=== PATIENT | female | born 1945 | race Caucasian/White ===

== ENCOUNTER 2018-11-11 18:58 | Inpatient (IN) | payer MEDICARE, MEDICAID ==
--- NOTE | 2018-11-11 19:46 | ED Physician Chart ---
ED Chief Complaint/HPI - Patient Information Date Seen:: 11/11/18 Time Seen:: 19:40 Chief Complaint:: AGITATION SUSHILA PSYCH EVAL History of Present Illness:: 73 YR OLD FEMALE WITH PSYCH PROBLEMS HERE FOR GEROPSYCH EVALUATION Allergies:: Allergies Allergy/AdvReac Type Severity Reaction Status Date / Time No Known Allergies Allergy Verified 11/11/18 19:34 ED Review of Systems - Review of Systems General/Constitutional: No fever, No chills, No weight loss, No weakness, No diaphoresis, No edema, No loss of appetite Skin: No skin lesions, No rash, No bruising Head: No headache, No light-headedness Eyes: No loss of vision, No pain, No diplopia ENT: No earache, No nasal drainage, No sore throat, No tinnitus Neck: No neck pain, No swelling, No thyromegaly, No stiffness, No mass noted Cardio Vascular: No chest pain, No palpitations, No PND, No orthopnea, No edema Pulmonary: No SOB, No cough, No sputum, No wheezing GI: No nausea, No vomiting, No diarrhea, No pain, No melena, No hematochezia, No constipation, No hematemesis G/U: No dysuria, No frequency, No hematuria Musculoskeletal: No bone or joint pain, No back pain, No muscle pain Endocrine: No polyuria, No polydipsia Psychiatric: No prior psych history, No depression, No anxiety, No suicidal ideation Hematopoietic: No bruising, No lymphadenopathy Allergic/Immuno: No urticaria, No angioedema Neurological: No syncope, No focal symptoms, No weakness, No paresthesia, No headache, No seizure, No dizziness, No confusion, No vertigo ED Past Medical History - Past Medical History Past Medical History: Other (AMS DEMENTIA WITH BEHAVIORAL DISTURBANCE CHRONIC HEPATITIS ASTHMA COPD ENCEPALOPATHYHTN MUSCLE WEAKNESS) ED Physical Exam - Physical Examination General/Constitutional: Awake, Well-developed, well-nourished, Alert, No distress, GCS 15, Non-toxic appearing, Ambulatory Head: Atraumatic Eyes: Lids, conjuctiva normal, PERRL, EOMI Skin: Nl inspection, No rash, No skin lesions, No ecchymosis, Well hydrated, No lymphadenopathy ENMT: External ears, nose nl, Nasal exam nl, Lips, teeth, gums nl Neck: Nontender, Full ROM w/o pain, No JVD, No nuchal rigidity, No bruit, No mass, No stridor Respiratory: Nl effort/Exclusion, Clear to Auscultation, No Wheeze/Rhonchi/Rales Cardio Vascular: RRR, No murmur, gallop, rubs, NL S1 S2 GI: No tenderness/rebounding/guarding, No organomegaly, No hernia, Normal BS's, Nondistended, No mass/bruits, No McBurney tenderness : No CVA tenderness Extremities: No tenderness or effusion, Full ROM, normal strength in all extremities, No edema, Normal digits & nails Neuro/Psych: Alert/oriented, DTR's symmetric, Normal sensory exam, Normal motor strength, Judgement/insight normal, Mood normal, Normal gait, No focal deficits Misc: Normal back, No paraspinal tenderness ED Assessment - Assessment General Assessment: AGITAION DEMENTIA GEROPSYCH EVALUATION ED Septic Shock - . Is Septic Shock (SBP<90, OR Lactate>4 mmol\L) present?: No ED Reassessment (Disposition) - Reassessment Reassessment:: AGITAION PSYCHOSIS - Diagnosis Diagnosis:: AGITAION GEROPSYCH EVALUATION - Patient Disposition Discharge/Transfer:: Acute Care w/in this hosp Admitted to:: Med/Surg Condition at Disposition:: Stable
[2018-11-11 20:02] LABS: URINE SOURCE CLEAN C
[2018-11-11 20:07] LABS: % BASOPHILS 1.1 % (0.0-2.0); % EOSINOPHILS 5.9 % (0.0-5.0); % LYMPHOCYTES 27.4 % (20.0-50.0); % MONOCYTES 11.3 % (2.0-10.0); % NEUTROPHILS 54.3 % (40.0-80.0); BASOPHILE ABSOLUTE 0.1 Th/cumm (0-0.2); EOSINOPHILE ABSOLUTE 0.4 Th/cmm (0.1-0.4); HEMATOCRIT 41.5 % (41.0-60); HEMOGLOBIN 13.8 gm/dL (12-16); LYMPHOCYTE ABSOLUTE 1.8 Th/cmm (1.5-3.0); MEAN CELL VOLUME 87.2 fl (81-100); MEAN CORPUSCULAR HGB CONC 33.3 pg (28.0-36.0); MEAN PLATELET VOLUME 6.9 fl; MONOCYTE ABSOLUTE 0.8 Th/cmm (0.3-1.0); NEUTROPHILE ABSOLUTE 3.6 Th/cmm (1.8-8.0); PLATELET COUNT 483 Th/cmm (150-400); RED BLOOD COUNT 4.76 Mil/cmm (3.80-5.20); RED CELL DISTRIBUTION WIDTH 17.2 % (11.5-20.0); WHITE BLOOD COUNT 6.7 Th/cmm (4.8-10.8)
[2018-11-11 20:08] LABS: URINE BILIRUBIN NEGATIVE (NEGATIVE); URINE BLOOD NEGATIVE (NEGATIVE); URINE GLUCOSE (UA) NEGATIVE (NEGATIVE); URINE KETONE NEGATIVE (NEGATIVE); URINE LEUKOCYTE ESTERASE NEGATIVE (NEGATIVE); URINE NITRATE NEGATIVE (NEGATIVE); URINE PROTEIN NEGATIVE (NEGATIVE); URINE UROBILINOGEN 0.2 E.U./dL (0.2 - 1.0)
[2018-11-11 20:16] LABS: ALB/GLOB RATIO 1.6 (1.0-1.8); ALBUMIN 4.2 gm/dL (3.7-5.3); ALKALINE PHOSPHATASE 89 U/L (34-104); ANION GAP 12.6 (7.0-16.0); BILIRUBIN,TOTAL 0.2 mg/dL (0.3-1.0); BUN - UREA NITROGEN 33 mg/dL (7-25); CALCIUM SERUM 9.8 mg/dL (8.6-10.3); CARBON DIOXIDE 24.5 mEq/L (21.0-31.0); CHLORIDE 108 mEq/L (98-107); CREATININE - SERUM 0.7 mg/dL (0.6-1.2); GLUCOSE 101 mg/dL (70-105); POTASSIUM SERUM 4.1 mEq/L (3.5-5.1); SGOT 12 U/L (13-39); SGPT/ALT 19 U/L (7-52); SODIUM SERUM 141 mEq/L (136-145); TOTAL PROTEIN,SERUM 6.9 gm/dL (6.0-8.3)
[2018-11-11 20:23] LABS: URINE CLARITY CLEAR (CLEAR); URINE COLOR YELLOW
[2018-11-11 20:26] LABS: URINE BACTERIA FEW /hpf (NONE SEEN); URINE EPITHELIAL CELLS OCCASIONAL /lpf (FEW); URINE MICROSCOPIC INDICATED? YES; URINE RBC NONE SEEN /hpf (0-5); URINE WBC 0-2 /hpf (0-5)
[2018-11-11 22:28] VITALS: BP 123/63
[2018-11-11] MEDS ORDERED: Magnesium Hydroxide (MOM) 30 mL UDC PO PRN (22:33)
[2018-11-11] MEDS ORDERED: Fleet Enema 135 mL RC PRN (22:33)
[2018-11-11 23:09] LABS: CHOLESTEROL 164 mg/dL (<200); HDL -HIGH DENSITY LIPOPROTEIN 50 mg/dL (23-92); TRIGLYCERIDES 123 mg/dL (<150)
[2018-11-12] MEDS ORDERED: Non-Formulary Item 1 EA (Cranberry Fruit Extract [Cranberry] 425 MG) PO SCH (09:00)
[2018-11-12] MEDS ORDERED: Non-Formulary Item 1 EA (Cran/Vitc/Mannose/Fos/Bromeln [Uti-Stat Liquid] 30 ML) PO SCH (09:00)
[2018-11-12] MEDS: Escitalopram Oxalate 5 mg Tab PO SCH (11:32)
--- NOTE | 2018-11-12 17:28 | History and Physical ---
History of Present Illness - HPI Chief Complaint: AGITATION HPI: THIS IS A 73 YEAR OLD WHO IS ADMITTED TO [facility] DUE TO AGITATION AT THE SNF. Vital Signs: Last Vital Signs Temp 98.6 F 11/12/18 14:00 Pulse 82 11/12/18 14:00 Resp 19 11/12/18 14:00 BP 120/77 11/12/18 14:00 Pulse Ox 99 11/12/18 14:00 Past Medical History Other History: DEMENTIA CHRONIC HEPATITIS ASTHMA COPD MUSCLE WEAKNESS Family Medical History - Family Member Mother History Unknown: Yes Ethnicity: Unknown Living Status: Unknown Hx Family Cancer: (unknown) Hx Family Coronary Artery Disease: (unknown) Hx Family Congestive Heart Failure: (unknown) Hx Family Hypertension: (unknown) Hx Family Stroke: (unknown) Hx Family Diabetes: (unknown) Hx Family Seizures: (unknown) Hx Family Dementia: (unknown) Hx Family AIDS: (unknown) Hx Family COPD: (unknown) Hx Family Hepatitis: (unknown) Hx Family Psychiatric Problems: (unknown) Hx Family Tuberculosis: (unknown) Social History Smoke: No Alcohol: None Drugs: None Lives: Half-Way - Medications Home Medications: Home Medication Medication Instructions Recorded Type Acetaminophen [Tylenol] 650 mg PO Q4HR PRN 11/11/18 History Aspirin EC [Ecotrin] 81 mg PO DAILY 11/11/18 History Bisacodyl [Dulcolax 10 Mg Supp] 10 mg RC DAILY PRN 11/11/18 History Cholecalciferol (Vitamin D3) 1,000 unit PO DAILY 11/11/18 History [Vitamin D3] Cran/Vitc/Mannose/Fos/Bromeln 30 ml PO DAILY 11/11/18 History [Uti-Stat 887 ml] Cranberry Fruit Extract [Cranberry] 425 mg PO DAILY 11/11/18 History Docusate Sodium [Colace] 100 mg PO DAILY 11/11/18 History Fleet Enema 135 ml RC Q48HR PRN 11/11/18 History Magnesium Hydroxide [Milk of 30 ml PO HS PRN 11/11/18 History Magnesia] Melatonin/Pyridoxine [Melatonin 1 tab PO HS 11/11/18 History Extra Strength 5 mg-1 mg] Memantine HCl [Namenda] 10 mg PO BID 11/11/18 History Memantine [Namenda] 10 mg PO DAILY 11/11/18 History - Allergies Allergies/Adverse Reactions: Allergies Allergy/AdvReac Type Severity Reaction Status Date / Time No Known Allergies Allergy Verified 11/11/18 19:34 Review of Systems - Review of Systems Constitutional: Report: No Significant Eyes: Report: No Significant Respiratory: Report: No Significant Cardiovascular: Report: No Significant Neurological: Report: No Significant Physical Exam - Physical Exam HEENT: Report: Ears Nose Throat within normal limits Neck: Report: Within normal limits Cardiovascular Systems: Report: +s1/s2 noted, Regular, Rate and Rhythm Respiratory: Report: Breath Sounds are within normal limits Abdomen: Report: Non-tender to palpation Skin: Report: Warm, Dry - Lab Results All Lab Results last 24 hours: Laboratory Results - last 24 hr 11/11/18 11/11/18 11/11/18 19:30 19:54 19:54 WBC 6.7 RBC 4.76 Hgb 13.8 Hct 41.5 MCV 87.2 MCH 29.0 MCHC Differential 33.3 RDW 17.2 Plt Count 483 H MPV 6.9 Neutrophils % 54.3 Lymphocytes % 27.4 Monocytes % 11.3 H Eosinophils % 5.9 H Basophils % 1.1 Sodium 141 Potassium 4.1 Chloride 108 H Carbon Dioxide 24.5 Anion Gap 12.6 BUN 33 H Creatinine 0.7 Est GFR ( Amer) TNP Est GFR (Non-Af Amer) TNP BUN/Creatinine Ratio 47.1 Glucose 101 Calcium 9.8 Total Bilirubin 0.2 L AST 12 L ALT 19 Alkaline Phosphatase 89 Total Protein 6.9 Albumin 4.2 Globulin 2.7 Albumin/Globulin Ratio 1.6 Triglycerides Cholesterol LDL Cholesterol Direct HDL Cholesterol Urine Source CLEAN C Urine Color YELLOW Urine Clarity CLEAR Urine pH 6.0 Ur Specific [place] 1.025 Urine Protein NEGATIVE Urine Glucose (UA) NEGATIVE Urine Ketones NEGATIVE Urine Blood NEGATIVE Urine Nitrate NEGATIVE Urine Bilirubin NEGATIVE Urine Urobilinogen 0.2 Ur Leukocyte Esterase NEGATIVE Urine RBC NONE SEEN Urine WBC 0-2 Ur Epithelial Cells OCCASIONAL Urine Bacteria FEW 11/11/18 19:54 WBC RBC Hgb Hct MCV MCH MCHC Differential RDW Plt Count MPV Neutrophils % Lymphocytes % Monocytes % Eosinophils % Basophils % Sodium Potassium Chloride Carbon Dioxide Anion Gap BUN Creatinine Est GFR ( Amer) Est GFR (Non-Af Amer) BUN/Creatinine Ratio Glucose Calcium Total Bilirubin AST ALT Alkaline Phosphatase Total Protein Albumin Globulin Albumin/Globulin Ratio Triglycerides 123 Cholesterol 164 LDL Cholesterol Direct 108 HDL Cholesterol 50 Urine Source Urine Color Urine Clarity Urine pH Ur Specific [place] Urine Protein Urine Glucose (UA) Urine Ketones Urine Blood Urine Nitrate Urine Bilirubin Urine Urobilinogen Ur Leukocyte Esterase Urine RBC Urine WBC Ur Epithelial Cells Urine Bacteria - Assessment Assessment: DEMENTIA CHRONIC HEPATITIS ASTHMA COPD MUSCLE WEAKNESS - Plan Plan: FALL PRECAUTIONS CONTINUE CURRENT [place]
[2018-11-12] MEDS ORDERED: PYRIDOXINE PO SCH (21:00)
[2018-11-12] MEDS ORDERED: MELATONIN PO SCH (21:00)
[2018-11-13] MEDS: Escitalopram Oxalate 5 mg Tab PO SCH (09:01)
--- NOTE | 2018-11-13 12:30 | Psychiatric Evaluation ---
DATE OF SERVICE: 11/12/2018 PSYCHIATRIC INITIAL EVALUATION AND MENTAL STATUS EXAM PATIENT'S AGE: 73-year-old. SEX: Female. PHYSICIAN: Dr. Bañuelos. CHIEF COMPLAINT: Agitation and refusing medications. HISTORY OF PRESENT ILLNESS: The patient is a 73-year-old female who is admitted to the hospital from [facility] because the patient has been increasingly agitated and depressed and also has not been able to follow staff directions. The patient also has been in angry and in irritable mood. PAST PSYCHIATRIC HISTORY: The patient has history of dementia and also history of psychosis. PAST MEDICAL HISTORY: The patient had no known major medical problems. SOCIAL HISTORY: The patient lives in [facility]. No known alcohol or drug use. ALLERGIES: No known allergies. MENTAL STATUS EXAMINATION: The patient appears her stated age. Anxious. Flat affect. In a depressed mood. Easily agitated. The patient also is trying to be cooperative, but he is still confused and agitated. Otherwise, the patient is alert and oriented to time, place, person and situation. Intact recent and remote memories but impaired immediate memories. Poor insight and judgment. ASSESSMENT: PRIMARY DIAGNOSIS: Unspecified psychosis. TREATMENT PLAN: We will monitor the patient's behavior and condition closely. Also, we will start psychotherapy and will start also behavioral modifications and work on ineffective coping. JOB# [id number]
--- NOTE | 2018-11-13 16:13 | Internal Medicine Prog Note ---
Internal Medicine Subjective - Subjective Patient seen and examined:: chart reviewed Patient is:: awake, agitated, confused Per staff patient has:: agitated, confused Internal Medicine Objective - Results Result Diagrams: 11/11/18 19:54 11/11/18 19:54 Recent Labs: Laboratory Last Values WBC 6.7 Th/cmm (4.8-10.8) 11/11/18 19:54 RBC 4.76 Mil/cmm (3.80-5.20) 11/11/18 19:54 Hgb 13.8 gm/dL (12-16) 11/11/18 19:54 Hct 41.5 % (41.0-60) 11/11/18 19:54 MCV 87.2 fl (81-100) 11/11/18 19:54 MCH 29.0 pg (27.0-31.0) 11/11/18 19:54 MCHC Differential 33.3 pg (28.0-36.0) 11/11/18 19:54 RDW 17.2 % (11.5-20.0) 11/11/18 19:54 Plt Count 483 Th/cmm (150-400) H 11/11/18 19:54 MPV 6.9 fl 11/11/18 19:54 Neutrophils % 54.3 % (40.0-80.0) 11/11/18 19:54 Lymphocytes % 27.4 % (20.0-50.0) 11/11/18 19:54 Monocytes % 11.3 % (2.0-10.0) H 11/11/18 19:54 Eosinophils % 5.9 % (0.0-5.0) H 11/11/18 19:54 Basophils % 1.1 % (0.0-2.0) 11/11/18 19:54 Sodium 141 mEq/L (136-145) 11/11/18 19:54 Potassium 4.1 mEq/L (3.5-5.1) 11/11/18 19:54 Chloride 108 mEq/L (98-107) H 11/11/18 19:54 Carbon Dioxide 24.5 mEq/L (21.0-31.0) 11/11/18 19:54 Anion Gap 12.6 (7.0-16.0) 11/11/18 19:54 BUN 33 mg/dL (7-25) H 11/11/18 19:54 Creatinine 0.7 mg/dL (0.6-1.2) 11/11/18 19:54 Est GFR ( Amer) TNP 11/11/18 19:54 Est GFR (Non-Af Amer) TNP 11/11/18 19:54 BUN/Creatinine Ratio 47.1 11/11/18 19:54 Glucose 101 mg/dL (70-105) 11/11/18 19:54 Calcium 9.8 mg/dL (8.6-10.3) 11/11/18 19:54 Total Bilirubin 0.2 mg/dL (0.3-1.0) L 11/11/18 19:54 AST 12 U/L (13-39) L 11/11/18 19:54 ALT 19 U/L (7-52) 11/11/18 19:54 Alkaline Phosphatase 89 U/L (34-104) 11/11/18 19:54 Total Protein 6.9 gm/dL (6.0-8.3) 11/11/18 19:54 Albumin 4.2 gm/dL (3.7-5.3) 11/11/18 19:54 Globulin 2.7 gm/dL 11/11/18 19:54 Albumin/Globulin Ratio 1.6 (1.0-1.8) 11/11/18 19:54 Triglycerides 123 mg/dL (<150) 11/11/18 19:54 Cholesterol 164 mg/dL (<200) 11/11/18 19:54 LDL Cholesterol Direct 108 mg/dL (75-193) 11/11/18 19:54 HDL Cholesterol 50 mg/dL (23-92) 11/11/18 19:54 Urine Source CLEAN C 11/11/18 19:30 Urine Color YELLOW 11/11/18 19:30 Urine Clarity CLEAR (CLEAR) 11/11/18 19:30 Urine pH 6.0 (4.6 - 8.0) 11/11/18 19:30 Ur Specific [place] 1.025 (1.005-1.030) 11/11/18 19:30 Urine Protein NEGATIVE mg/dL (NEGATIVE) 11/11/18 19:30 Urine Glucose (UA) NEGATIVE mg/dL (NEGATIVE) 11/11/18 19:30 Urine Ketones NEGATIVE mg/dL (NEGATIVE) 11/11/18 19:30 Urine Blood NEGATIVE (NEGATIVE) 11/11/18 19:30 Urine Nitrate NEGATIVE (NEGATIVE) 11/11/18 19:30 Urine Bilirubin NEGATIVE (NEGATIVE) 11/11/18 19:30 Urine Urobilinogen 0.2 E.U./dL (0.2 - 1.0) 11/11/18 19:30 Ur Leukocyte Esterase NEGATIVE (NEGATIVE) 11/11/18 19:30 Urine RBC NONE SEEN /hpf (0-5) 11/11/18 19:30 Urine WBC 0-2 /hpf (0-5) 11/11/18 19:30 Ur Epithelial Cells OCCASIONAL /lpf (FEW) 11/11/18 19:30 Urine Bacteria FEW /hpf (NONE SEEN) 11/11/18 19:30 - Physical Exam Vitals and I&O: Vital Signs Temp 97.4 F 11/13/18 14:00 Pulse 72 11/13/18 14:00 Resp 20 11/13/18 14:00 BP 106/65 11/13/18 14:00 Pulse Ox 96 11/13/18 14:00 Intake & Output 11/12/18 11/13/18 11/13/18 18:59 06:59 18:59 Intake Total 1250 360 Balance 1250 360 Intake: Oral 1250 360 Other: # Voids 2 Active Medications: Current Medications Acetaminophen (Tylenol) 650 mg PO Q4HR PRN PRN Reason: TEMP>101.F AND MILD PAIN Stop: 01/10/19 22:32 Aspirin (Ecotrin) 81 mg PO DAILY [facility] Stop: 01/11/19 08:59 Last Admin: 11/13/18 09:02 Dose: 81 mg Bisacodyl (Dulcolax 10 Mg Supp) 10 mg RC DAILY PRN PRN Reason: Constipation Stop: 01/10/19 22:32 Cholecalciferol (Vitamin D3) 1,000 iu PO DAILY [facility] Stop: 01/11/19 08:59 Last Admin: 11/13/18 09:01 Dose: 1,000 iu Docusate Sodium (Colace) 100 mg PO DAILY [facility] Stop: 01/11/19 08:59 Last Admin: 11/13/18 09:01 Dose: 100 mg Escitalopram Oxalate (Lexapro) 5 mg PO DAILY [facility]; Protocol Stop: 01/11/19 08:59 Last Admin: 11/13/18 09:01 Dose: 5 mg Lorazepam (Ativan) 0.5 mg PO Q4H PRN; Protocol PRN Reason: Anxiety Stop: 01/10/19 22:27 Magnesium Hydroxide (Milk Of Magnesia) 30 ml PO HS PRN PRN Reason: Constipation Stop: 01/10/19 22:32 Memantine (Namenda) 10 mg PO BID [facility] Stop: 01/11/19 08:59 Last Admin: 11/13/18 09:01 Dose: 10 mg Sodium Phosphate (Fleet Enema) 135 ml RC Q48HR PRN PRN Reason: Constipation Stop: 01/10/19 22:32 Zolpidem Tartrate (Ambien) 5 mg PO HS PRN PRN Reason: Insomnia Stop: 01/10/19 22:27 Last Admin: 11/12/18 22:21 Dose: 5 mg General: alert, NAD HEENT: PERRLA, EOMI Neck: Supple Lungs: CTAB Cardiovascular: RRR, Normal S1, Normal S2 Abdomen: soft, non-tender Extremities: clear Neurological: alert (pt. depressed) Internal Medicine Assmt/Plan - Assessment Assessment: psychosis dementia chronic hepatitis asthma copd muscle weakness - Plan Plan: as per psych will monitor pt. continue behavioral therapy
--- NOTE | 2018-11-13 21:43 | Progress Notes ---
DATE: 11/13/2018 SUBJECTIVE: Chart reviewed and the patient interviewed. Also discussed the patient's condition with the staff and reviewed records and labs. The patient is still withdrawn. The patient also is still depressed and she is still interacting minimally with others. The patient also is guarded, forgetful, and selectively mute. Otherwise, the patient is having no behavioral problems. ASSESSMENT: The patient is still depressed. TREATMENT PLAN: Continue to monitor the patient's behavior closely. Also, yesterday the patient refused to take Lexapro, but did take Namenda. Discussed with the patient why she refused to take Lexapro, but she has no explanation. The patient said that she will take it today. At the same time, we will continue monitoring behavior and continue to follow up. JOB# [id number]
[2018-11-14] MEDS: Escitalopram Oxalate 5 mg Tab PO SCH (08:29)
--- NOTE | 2018-11-14 19:17 | Internal Medicine Prog Note ---
Internal Medicine Subjective - Subjective Service Date: 11/14/18 Patient is:: awake, agitated, confused Per staff patient has:: agitated, confused Internal Medicine Objective - Results Result Diagrams: 11/11/18 19:54 11/11/18 19:54 Recent Labs: Laboratory Last Values WBC 6.7 Th/cmm (4.8-10.8) 11/11/18 19:54 RBC 4.76 Mil/cmm (3.80-5.20) 11/11/18 19:54 Hgb 13.8 gm/dL (12-16) 11/11/18 19:54 Hct 41.5 % (41.0-60) 11/11/18 19:54 MCV 87.2 fl (81-100) 11/11/18 19:54 MCH 29.0 pg (27.0-31.0) 11/11/18 19:54 MCHC Differential 33.3 pg (28.0-36.0) 11/11/18 19:54 RDW 17.2 % (11.5-20.0) 11/11/18 19:54 Plt Count 483 Th/cmm (150-400) H 11/11/18 19:54 MPV 6.9 fl 11/11/18 19:54 Neutrophils % 54.3 % (40.0-80.0) 11/11/18 19:54 Lymphocytes % 27.4 % (20.0-50.0) 11/11/18 19:54 Monocytes % 11.3 % (2.0-10.0) H 11/11/18 19:54 Eosinophils % 5.9 % (0.0-5.0) H 11/11/18 19:54 Basophils % 1.1 % (0.0-2.0) 11/11/18 19:54 Sodium 141 mEq/L (136-145) 11/11/18 19:54 Potassium 4.1 mEq/L (3.5-5.1) 11/11/18 19:54 Chloride 108 mEq/L (98-107) H 11/11/18 19:54 Carbon Dioxide 24.5 mEq/L (21.0-31.0) 11/11/18 19:54 Anion Gap 12.6 (7.0-16.0) 11/11/18 19:54 BUN 33 mg/dL (7-25) H 11/11/18 19:54 Creatinine 0.7 mg/dL (0.6-1.2) 11/11/18 19:54 Est GFR ( Amer) TNP 11/11/18 19:54 Est GFR (Non-Af Amer) TNP 11/11/18 19:54 BUN/Creatinine Ratio 47.1 11/11/18 19:54 Glucose 101 mg/dL (70-105) 11/11/18 19:54 POC Glucose 85 MG/DL (70 - 105) 11/14/18 06:05 Calcium 9.8 mg/dL (8.6-10.3) 11/11/18 19:54 Total Bilirubin 0.2 mg/dL (0.3-1.0) L 11/11/18 19:54 AST 12 U/L (13-39) L 11/11/18 19:54 ALT 19 U/L (7-52) 11/11/18 19:54 Alkaline Phosphatase 89 U/L (34-104) 11/11/18 19:54 Total Protein 6.9 gm/dL (6.0-8.3) 11/11/18 19:54 Albumin 4.2 gm/dL (3.7-5.3) 11/11/18 19:54 Globulin 2.7 gm/dL 11/11/18 19:54 Albumin/Globulin Ratio 1.6 (1.0-1.8) 11/11/18 19:54 Triglycerides 123 mg/dL (<150) 11/11/18 19:54 Cholesterol 164 mg/dL (<200) 11/11/18 19:54 LDL Cholesterol Direct 108 mg/dL (75-193) 11/11/18 19:54 HDL Cholesterol 50 mg/dL (23-92) 11/11/18 19:54 Urine Source CLEAN C 11/11/18 19:30 Urine Color YELLOW 11/11/18 19:30 Urine Clarity CLEAR (CLEAR) 11/11/18 19:30 Urine pH 6.0 (4.6 - 8.0) 11/11/18 19:30 Ur Specific [place] 1.025 (1.005-1.030) 11/11/18 19:30 Urine Protein NEGATIVE mg/dL (NEGATIVE) 11/11/18 19:30 Urine Glucose (UA) NEGATIVE mg/dL (NEGATIVE) 11/11/18 19:30 Urine Ketones NEGATIVE mg/dL (NEGATIVE) 11/11/18 19:30 Urine Blood NEGATIVE (NEGATIVE) 11/11/18 19:30 Urine Nitrate NEGATIVE (NEGATIVE) 11/11/18 19:30 Urine Bilirubin NEGATIVE (NEGATIVE) 11/11/18 19:30 Urine Urobilinogen 0.2 E.U./dL (0.2 - 1.0) 11/11/18 19:30 Ur Leukocyte Esterase NEGATIVE (NEGATIVE) 11/11/18 19:30 Urine RBC NONE SEEN /hpf (0-5) 11/11/18 19:30 Urine WBC 0-2 /hpf (0-5) 11/11/18 19:30 Ur Epithelial Cells OCCASIONAL /lpf (FEW) 11/11/18 19:30 Urine Bacteria FEW /hpf (NONE SEEN) 11/11/18 19:30 - Physical Exam Vitals and I&O: Vital Signs Temp 97.6 F 11/14/18 14:00 Pulse 95 11/14/18 14:00 Resp 20 11/14/18 14:00 BP 121/74 11/14/18 14:00 Pulse Ox 96 11/14/18 14:00 Intake & Output 11/14/18 11/14/18 11/15/18 06:59 18:59 06:59 Intake Total 120 1000 Balance 120 1000 Intake: Oral 120 1000 Other: # Voids 3 3 # Bowel Movements 1 Active Medications: Current Medications Acetaminophen (Tylenol) 650 mg PO Q4HR PRN PRN Reason: TEMP>101.F AND MILD PAIN Stop: 01/10/19 22:32 Aspirin (Ecotrin) 81 mg PO DAILY [facility] Stop: 01/11/19 08:59 Last Admin: 11/14/18 08:29 Dose: 81 mg Bisacodyl (Dulcolax 10 Mg Supp) 10 mg RC DAILY PRN PRN Reason: Constipation Stop: 01/10/19 22:32 Cholecalciferol (Vitamin D3) 1,000 iu PO DAILY [facility] Stop: 01/11/19 08:59 Last Admin: 11/14/18 08:30 Dose: 1,000 iu Docusate Sodium (Colace) 100 mg PO DAILY [facility] Stop: 01/11/19 08:59 Last Admin: 11/14/18 08:29 Dose: 100 mg Escitalopram Oxalate (Lexapro) 5 mg PO DAILY [facility]; Protocol Stop: 01/11/19 08:59 Last Admin: 11/14/18 08:29 Dose: 5 mg Lorazepam (Ativan) 0.5 mg PO Q4H PRN; Protocol PRN Reason: Anxiety Stop: 01/10/19 22:27 Last Admin: 11/13/18 21:29 Dose: 0.5 mg Magnesium Hydroxide (Milk Of Magnesia) 30 ml PO HS PRN PRN Reason: Constipation Stop: 01/10/19 22:32 Memantine (Namenda) 10 mg PO BID [facility] Stop: 01/11/19 08:59 Last Admin: 11/14/18 16:29 Dose: 10 mg Sodium Phosphate (Fleet Enema) 135 ml RC Q48HR PRN PRN Reason: Constipation Stop: 01/10/19 22:32 Zolpidem Tartrate (Ambien) 5 mg PO HS PRN PRN Reason: Insomnia Stop: 01/10/19 22:27 Last Admin: 11/13/18 21:29 Dose: 5 mg General: alert, NAD HEENT: PERRLA, EOMI Neck: Supple Lungs: CTAB Cardiovascular: RRR, Normal S1, Normal S2 Abdomen: soft, non-tender Extremities: clear Neurological: alert (pt. depressed) Internal Medicine Assmt/Plan - Assessment Assessment: DEMENTIA CHRONIC HEPATITIS ASTHMA COPD MUSCLE WEAKNESS - Plan Plan: FALL PRECAUTIONS CONTINUE CURRENT TX
[2018-11-15] MEDS: Escitalopram Oxalate 5 mg Tab PO SCH (08:49)
--- NOTE | 2018-11-15 17:01 | Internal Medicine Prog Note ---
Internal Medicine Subjective - Subjective Patient is:: awake, agitated, confused Per staff patient has:: agitated, confused Internal Medicine Objective - Results Result Diagrams: 11/11/18 19:54 11/11/18 19:54 Recent Labs: Laboratory Last Values WBC 6.7 Th/cmm (4.8-10.8) 11/11/18 19:54 RBC 4.76 Mil/cmm (3.80-5.20) 11/11/18 19:54 Hgb 13.8 gm/dL (12-16) 11/11/18 19:54 Hct 41.5 % (41.0-60) 11/11/18 19:54 MCV 87.2 fl (81-100) 11/11/18 19:54 MCH 29.0 pg (27.0-31.0) 11/11/18 19:54 MCHC Differential 33.3 pg (28.0-36.0) 11/11/18 19:54 RDW 17.2 % (11.5-20.0) 11/11/18 19:54 Plt Count 483 Th/cmm (150-400) H 11/11/18 19:54 MPV 6.9 fl 11/11/18 19:54 Neutrophils % 54.3 % (40.0-80.0) 11/11/18 19:54 Lymphocytes % 27.4 % (20.0-50.0) 11/11/18 19:54 Monocytes % 11.3 % (2.0-10.0) H 11/11/18 19:54 Eosinophils % 5.9 % (0.0-5.0) H 11/11/18 19:54 Basophils % 1.1 % (0.0-2.0) 11/11/18 19:54 Sodium 141 mEq/L (136-145) 11/11/18 19:54 Potassium 4.1 mEq/L (3.5-5.1) 11/11/18 19:54 Chloride 108 mEq/L (98-107) H 11/11/18 19:54 Carbon Dioxide 24.5 mEq/L (21.0-31.0) 11/11/18 19:54 Anion Gap 12.6 (7.0-16.0) 11/11/18 19:54 BUN 33 mg/dL (7-25) H 11/11/18 19:54 Creatinine 0.7 mg/dL (0.6-1.2) 11/11/18 19:54 Est GFR ( Amer) TNP 11/11/18 19:54 Est GFR (Non-Af Amer) TNP 11/11/18 19:54 BUN/Creatinine Ratio 47.1 11/11/18 19:54 Glucose 101 mg/dL (70-105) 11/11/18 19:54 POC Glucose 85 MG/DL (70 - 105) 11/14/18 06:05 Calcium 9.8 mg/dL (8.6-10.3) 11/11/18 19:54 Total Bilirubin 0.2 mg/dL (0.3-1.0) L 11/11/18 19:54 AST 12 U/L (13-39) L 11/11/18 19:54 ALT 19 U/L (7-52) 11/11/18 19:54 Alkaline Phosphatase 89 U/L (34-104) 11/11/18 19:54 Total Protein 6.9 gm/dL (6.0-8.3) 11/11/18 19:54 Albumin 4.2 gm/dL (3.7-5.3) 11/11/18 19:54 Globulin 2.7 gm/dL 11/11/18 19:54 Albumin/Globulin Ratio 1.6 (1.0-1.8) 11/11/18 19:54 Triglycerides 123 mg/dL (<150) 11/11/18 19:54 Cholesterol 164 mg/dL (<200) 11/11/18 19:54 LDL Cholesterol Direct 108 mg/dL (75-193) 11/11/18 19:54 HDL Cholesterol 50 mg/dL (23-92) 11/11/18 19:54 Urine Source CLEAN C 11/11/18 19:30 Urine Color YELLOW 11/11/18 19:30 Urine Clarity CLEAR (CLEAR) 11/11/18 19:30 Urine pH 6.0 (4.6 - 8.0) 11/11/18 19:30 Ur Specific [place] 1.025 (1.005-1.030) 11/11/18 19:30 Urine Protein NEGATIVE mg/dL (NEGATIVE) 11/11/18 19:30 Urine Glucose (UA) NEGATIVE mg/dL (NEGATIVE) 11/11/18 19:30 Urine Ketones NEGATIVE mg/dL (NEGATIVE) 11/11/18 19:30 Urine Blood NEGATIVE (NEGATIVE) 11/11/18 19:30 Urine Nitrate NEGATIVE (NEGATIVE) 11/11/18 19:30 Urine Bilirubin NEGATIVE (NEGATIVE) 11/11/18 19:30 Urine Urobilinogen 0.2 E.U./dL (0.2 - 1.0) 11/11/18 19:30 Ur Leukocyte Esterase NEGATIVE (NEGATIVE) 11/11/18 19:30 Urine RBC NONE SEEN /hpf (0-5) 11/11/18 19:30 Urine WBC 0-2 /hpf (0-5) 11/11/18 19:30 Ur Epithelial Cells OCCASIONAL /lpf (FEW) 11/11/18 19:30 Urine Bacteria FEW /hpf (NONE SEEN) 11/11/18 19:30 - Physical Exam Vitals and I&O: Vital Signs Temp 97.6 F 11/15/18 14:00 Pulse 79 11/15/18 14:00 Resp 18 11/15/18 14:00 BP 123/68 11/15/18 14:00 Pulse Ox 97 11/15/18 14:00 Intake & Output 11/14/18 11/15/18 11/15/18 18:59 06:59 18:59 Intake Total 1000 480 Balance 1000 480 Intake: Oral 1000 480 Other: # Voids 3 1 # Bowel Movements 1 Active Medications: Current Medications Acetaminophen (Tylenol) 650 mg PO Q4HR PRN PRN Reason: TEMP>101.F AND MILD PAIN Stop: 01/10/19 22:32 Aspirin (Ecotrin) 81 mg PO DAILY [facility] Stop: 01/11/19 08:59 Last Admin: 11/15/18 08:48 Dose: 81 mg Bisacodyl (Dulcolax 10 Mg Supp) 10 mg RC DAILY PRN PRN Reason: Constipation Stop: 01/10/19 22:32 Cholecalciferol (Vitamin D3) 1,000 iu PO DAILY [facility] Stop: 01/11/19 08:59 Last Admin: 11/15/18 08:49 Dose: 1,000 iu Docusate Sodium (Colace) 100 mg PO DAILY [facility] Stop: 01/11/19 08:59 Last Admin: 11/15/18 08:48 Dose: 100 mg Escitalopram Oxalate (Lexapro) 5 mg PO DAILY [facility]; Protocol Stop: 01/11/19 08:59 Last Admin: 11/15/18 08:49 Dose: 5 mg Lorazepam (Ativan) 0.5 mg PO Q4H PRN; Protocol PRN Reason: Anxiety Stop: 01/10/19 22:27 Last Admin: 11/13/18 21:29 Dose: 0.5 mg Magnesium Hydroxide (Milk Of Magnesia) 30 ml PO HS PRN PRN Reason: Constipation Stop: 01/10/19 22:32 Memantine (Namenda) 10 mg PO BID [facility] Stop: 01/11/19 08:59 Last Admin: 11/15/18 08:49 Dose: 10 mg Sodium Phosphate (Fleet Enema) 135 ml RC Q48HR PRN PRN Reason: Constipation Stop: 01/10/19 22:32 Zolpidem Tartrate (Ambien) 5 mg PO HS PRN PRN Reason: Insomnia Stop: 01/10/19 22:27 Last Admin: 11/14/18 21:20 Dose: 5 mg General: alert, NAD HEENT: PERRLA, EOMI Neck: Supple Lungs: CTAB Cardiovascular: RRR, Normal S1, Normal S2 Abdomen: soft, non-tender Extremities: clear Neurological: alert (pt. depressed) Internal Medicine Assmt/Plan - Assessment Assessment: psychosis dementia chronic hepatitis asthma copd muscle weakness - Plan Plan: as per psych will monitor pt. continue behavioral therapy
[2018-11-16] MEDS: Escitalopram Oxalate 5 mg Tab PO SCH (09:19)
--- NOTE | 2018-11-16 17:29 | Progress Notes ---
DATE: 11/16/2018 SUBJECTIVE: The patient coming in from [facility], increased agitation and depressed mood. Not following directions. The patient does not know where she is. States that she is "at the house," knows that it is Sunday, not quite sure about the year. The patient has multiple Chandan bears surrounding her. Mostly keeps to herself, withdrawn, at times forgetful, guarded. Staff noting sometimes noted to be pacing in the hallways, poor orientation, needing prompting, redirection and reorientation. ASSESSMENT: The patient remains confused, disoriented as noted, ongoing safety concerns, concerns about impulsivities. We will continue to monitor, titrate and adjust medications. JOB# [id number]
--- NOTE | 2018-11-16 18:56 | Progress Notes ---
DATE: 11/16/2018 SUBJECTIVE: The patient was seen in the dining area. The patient appears to be isolative, withdrawn with episodes of forgetful and easily gets frustrated, otherwise the patient is in no acute distress. OBJECTIVE: VITAL SIGNS: Temperature 97.9, heart rate 75, blood pressure 113/94, respiration 19 and 95% on room air. HEENT: Head is atraumatic and normocephalic. Eyes: Bilateral conjunctivae are clear. Bilateral pupils are equally round and reactive. NECK: Supple. No JVD. CARDIOVASCULAR: S1 and S2, without murmur. PULMONARY: Clear to auscultation. GASTROINTESTINAL: Soft and nontender without guarding. Positive bowel sounds. MUSCULOSKELETAL: No clubbing. No cyanosis noted. ASSESSMENT: 1. Dementia. 2. Chronic obstructive pulmonary disease. 3. Osteoarthritis. 4. Vitamin D deficiency. PLAN: We will keep the patient inpatient to Psychiatric Unit. We will follow up with a psychiatrist to monitor the patient's condition and behavior. Treatment plans were discussed with the patient's nurse. Treatment plans were discussed with Dr. Anne. JOB# [id number]
[2018-11-17] MEDS: Escitalopram Oxalate 5 mg Tab PO SCH (08:23)
--- NOTE | 2018-11-17 12:40 | Internal Medicine Prog Note ---
Internal Medicine Subjective - Subjective Patient seen and examined:: chart reviewed Patient is:: awake, agitated, confused, other (insolated, withdrawn no signs of pain ) Per staff patient has:: agitated, confused Internal Medicine Objective - Results Result Diagrams: 11/11/18 19:54 11/11/18 19:54 Recent Labs: Laboratory Last Values WBC 6.7 Th/cmm (4.8-10.8) 11/11/18 19:54 RBC 4.76 Mil/cmm (3.80-5.20) 11/11/18 19:54 Hgb 13.8 gm/dL (12-16) 11/11/18 19:54 Hct 41.5 % (41.0-60) 11/11/18 19:54 MCV 87.2 fl (81-100) 11/11/18 19:54 MCH 29.0 pg (27.0-31.0) 11/11/18 19:54 MCHC Differential 33.3 pg (28.0-36.0) 11/11/18 19:54 RDW 17.2 % (11.5-20.0) 11/11/18 19:54 Plt Count 483 Th/cmm (150-400) H 11/11/18 19:54 MPV 6.9 fl 11/11/18 19:54 Neutrophils % 54.3 % (40.0-80.0) 11/11/18 19:54 Lymphocytes % 27.4 % (20.0-50.0) 11/11/18 19:54 Monocytes % 11.3 % (2.0-10.0) H 11/11/18 19:54 Eosinophils % 5.9 % (0.0-5.0) H 11/11/18 19:54 Basophils % 1.1 % (0.0-2.0) 11/11/18 19:54 Sodium 141 mEq/L (136-145) 11/11/18 19:54 Potassium 4.1 mEq/L (3.5-5.1) 11/11/18 19:54 Chloride 108 mEq/L (98-107) H 11/11/18 19:54 Carbon Dioxide 24.5 mEq/L (21.0-31.0) 11/11/18 19:54 Anion Gap 12.6 (7.0-16.0) 11/11/18 19:54 BUN 33 mg/dL (7-25) H 11/11/18 19:54 Creatinine 0.7 mg/dL (0.6-1.2) 11/11/18 19:54 Est GFR ( Amer) TNP 11/11/18 19:54 Est GFR (Non-Af Amer) TNP 11/11/18 19:54 BUN/Creatinine Ratio 47.1 11/11/18 19:54 Glucose 101 mg/dL (70-105) 11/11/18 19:54 POC Glucose 85 MG/DL (70 - 105) 11/14/18 06:05 Calcium 9.8 mg/dL (8.6-10.3) 11/11/18 19:54 Total Bilirubin 0.2 mg/dL (0.3-1.0) L 11/11/18 19:54 AST 12 U/L (13-39) L 11/11/18 19:54 ALT 19 U/L (7-52) 11/11/18 19:54 Alkaline Phosphatase 89 U/L (34-104) 11/11/18 19:54 Total Protein 6.9 gm/dL (6.0-8.3) 11/11/18 19:54 Albumin 4.2 gm/dL (3.7-5.3) 11/11/18 19:54 Globulin 2.7 gm/dL 11/11/18 19:54 Albumin/Globulin Ratio 1.6 (1.0-1.8) 11/11/18 19:54 Triglycerides 123 mg/dL (<150) 11/11/18 19:54 Cholesterol 164 mg/dL (<200) 11/11/18 19:54 LDL Cholesterol Direct 108 mg/dL (75-193) 11/11/18 19:54 HDL Cholesterol 50 mg/dL (23-92) 11/11/18 19:54 Urine Source CLEAN C 11/11/18 19:30 Urine Color YELLOW 11/11/18 19:30 Urine Clarity CLEAR (CLEAR) 11/11/18 19:30 Urine pH 6.0 (4.6 - 8.0) 11/11/18 19:30 Ur Specific [place] 1.025 (1.005-1.030) 11/11/18 19:30 Urine Protein NEGATIVE mg/dL (NEGATIVE) 11/11/18 19:30 Urine Glucose (UA) NEGATIVE mg/dL (NEGATIVE) 11/11/18 19:30 Urine Ketones NEGATIVE mg/dL (NEGATIVE) 11/11/18 19:30 Urine Blood NEGATIVE (NEGATIVE) 11/11/18 19:30 Urine Nitrate NEGATIVE (NEGATIVE) 11/11/18 19:30 Urine Bilirubin NEGATIVE (NEGATIVE) 11/11/18 19:30 Urine Urobilinogen 0.2 E.U./dL (0.2 - 1.0) 11/11/18 19:30 Ur Leukocyte Esterase NEGATIVE (NEGATIVE) 11/11/18 19:30 Urine RBC NONE SEEN /hpf (0-5) 11/11/18 19:30 Urine WBC 0-2 /hpf (0-5) 11/11/18 19:30 Ur Epithelial Cells OCCASIONAL /lpf (FEW) 11/11/18 19:30 Urine Bacteria FEW /hpf (NONE SEEN) 11/11/18 19:30 - Physical Exam Vitals and I&O: Vital Signs Temp 98.0 F 11/17/18 05:28 Pulse 69 11/17/18 05:28 Resp 18 11/17/18 05:28 BP 124/68 11/17/18 05:28 Pulse Ox 95 11/17/18 05:28 Intake & Output 11/16/18 11/17/18 11/17/18 18:59 06:59 18:59 Intake Total 1000 480 Balance 1000 480 Intake: Oral 1000 480 Other: # Voids 4 2 # Bowel Movements 1 Active Medications: Current Medications Acetaminophen (Tylenol) 650 mg PO Q4HR PRN PRN Reason: TEMP>101.F AND MILD PAIN Stop: 01/10/19 22:32 Aspirin (Ecotrin) 81 mg PO DAILY [facility] Stop: 01/11/19 08:59 Last Admin: 11/17/18 08:23 Dose: 81 mg Bisacodyl (Dulcolax 10 Mg Supp) 10 mg RC DAILY PRN PRN Reason: Constipation Stop: 01/10/19 22:32 Cholecalciferol (Vitamin D3) 1,000 iu PO DAILY [facility] Stop: 01/11/19 08:59 Last Admin: 11/17/18 08:23 Dose: 1,000 iu Docusate Sodium (Colace) 100 mg PO DAILY [facility] Stop: 01/11/19 08:59 Last Admin: 11/17/18 08:23 Dose: 100 mg Escitalopram Oxalate (Lexapro) 5 mg PO DAILY [facility]; Protocol Stop: 01/11/19 08:59 Last Admin: 11/17/18 08:23 Dose: 5 mg Lorazepam (Ativan) 0.5 mg PO Q4H PRN; Protocol PRN Reason: Anxiety Stop: 01/10/19 22:27 Last Admin: 11/13/18 21:29 Dose: 0.5 mg Magnesium Hydroxide (Milk Of Magnesia) 30 ml PO HS PRN PRN Reason: Constipation Stop: 01/10/19 22:32 Memantine (Namenda) 10 mg PO BID [facility] Stop: 01/11/19 08:59 Last Admin: 11/17/18 08:24 Dose: 10 mg Sodium Phosphate (Fleet Enema) 135 ml RC Q48HR PRN PRN Reason: Constipation Stop: 01/10/19 22:32 Zolpidem Tartrate (Ambien) 5 mg PO HS PRN PRN Reason: Insomnia Stop: 01/10/19 22:27 Last Admin: 11/16/18 21:01 Dose: 5 mg General: alert, NAD HEENT: PERRLA, EOMI Neck: Supple Lungs: CTAB Cardiovascular: RRR, Normal S1, Normal S2 Abdomen: soft, non-tender Extremities: clear Neurological: alert (pt. depressed) Internal Medicine Assmt/Plan - Assessment Assessment: psychosis dementia chronic hepatitis asthma copd muscle weakness - Plan Plan: as per psych will monitor pt. continue behavioral therapy Nutritional Asmnt/Malnutr-PDOC - Dietary Evaluation Malnutrition Findings (Please click <Entered> for more info): Nutritional Asmnt/Malnutrition Start: 11/16/18 09: 56 Text: Status: Complete Freq: Protocol: Document 11/16/18 09:56 KARIN (Rec: 11/16/18 10:03 [id number] [email or web address]- [email or web address]) Nutritional Asmnt/Malnutrition Patient General Information Nutritional Screening Low Risk Diagnosis Psychosis Pertinent Medical Hx/Surgical Hx dementia, chronic hepatitis, asthma, COPD, muscle weakness Subjective Information Patient in bed at time of visit. Tolerating current diet order with adequate intake. Current Diet Order/ Nutrition Support Regular Patient / S.O Not Indicated Pertinent Medications dulcolax, vitamin D3, colace, MOM, Fleet enema Pertinent Labs (11/11) BUN 33 Nutritional Hx/Data Height 1.6 m Height (Calculated Centimeters) 160.0 Current Weight (lbs) 61.235 kg Weight (Calculated Kilograms) 61.2 Weight (Calculated Grams) 65814.0 [place] Body Weight 115 % [place] Body Weight 117 Body Mass Index (BMI) 23.9 Recent Weight Change No Weight Status Approriate GI Symptoms GI Symptoms None Last BM 11/15 x 1 Difficult in: None Food Allergies No Cultural/Ethnic/[employer]ybeterian Belief none indicated Usual diet at home unknown Skin Integrity/Comment: [place] 18, intact Current %PO Good (75-100%) Estimated Nutritional Goals BEE in Kcals: Using Current wt Calories/Kcals/Kg 25-30 kcal/kg Kcals Calculated 2187-2268 kcal/day Protein: Using Current wt Protein g/k.8-1 gm/kg Protein Calculated 50-60gm/day Fluid: ml 6782-4989 ml/day Nutritional Problem 1. Problem Problem No nutrition diagnosis at this time Intervention/Recommendation Comments Continue regular diet as tolerated by patient Expected Outcomes/Goals Expected Outcomes/Goals Oral intake >75% of meals, weight stable, nutrition related labs WNL F/U LR 2/
--- NOTE | 2018-11-17 17:12 | Progress Notes ---
DATE: 11/17/2018 SUBJECTIVE: The patient is currently in the hospital, noted to be AO to name. She does not know the city she lives in. She states that she wants to go home, but does not know where she lives. She states she lives by herself, but in fact coming from a [facility] facility. The patient has been agitated, upset over at the [facility]. Not a very good historian. Staff noting she remains withdrawn, keeps to herself, sometimes mumbling to self, preoccupied with thoughts, at times refusing care, some behaviors noted, impulsive, unpredictable, poor orientation. ASSESSMENT: The patient remains symptomatic, confused, withdrawn, ongoing safety concerns, impulsive, unpredictable. PLAN: We will continue to monitor, titrate, and adjust medications. Continue Lexapro given recent dose. JOB# [id number]
--- NOTE | 2018-11-17 20:02 | Progress Notes ---
DATE: 11/15/2018 PSYCHIATRIC PROGRESS NOTE DATE OF SERVICE: 11/15/2018. SUBJECTIVE: Chart reviewed and the patient interviewed. Also discussed the patient's condition with the staff and reviewed records and labs. The patient is still calm and she is still depressed. The patient also still selectively mute and is also at times feels hopeless. Otherwise, the patient is compliant with taking her medications with no side effects. ASSESSMENT: The patient is still depressed. TREATMENT PLAN: Continue to monitor behavior and condition closely and continue adjusting psychotropic medications and followup. JOB# [id number]
--- NOTE | 2018-11-17 20:17 | Progress Notes ---
DATE: 11/14/2018 DATE OF SERVICE: 11/14/2018. PSYCHIATRIC PROGRESS NOTE SUBJECTIVE: Chart reviewed and the patient interviewed. Also discussed the patient's condition with the staff and reviewed records and labs. The patient is still guarded and is still withdrawn. The patient also is still selectively mute. The patient also is still forgetful. She also still needs directions. On the other hand, the patient seems to be calmer and she is compliant with taking her medications with no side effects. ASSESSMENT: The patient is still anxious and depressed. TREATMENT PLAN: Continue to monitor her behavior and her condition closely. Also, continue Lexapro and Namenda and continue to follow up closely. JOB# [id number]
[2018-11-18] MEDS: Escitalopram Oxalate 5 mg Tab PO SCH (09:54)
--- NOTE | 2018-11-18 11:55 | Internal Medicine Prog Note ---
Internal Medicine Subjective - Subjective Service Date: 11/18/18 Patient is:: awake, non-interactive, agitated, confused, other (insolated, withdrawn no signs of pain ) Per staff patient has:: agitated, confused Internal Medicine Objective - Results Result Diagrams: 11/11/18 19:54 11/11/18 19:54 Recent Labs: Laboratory Last Values WBC 6.7 Th/cmm (4.8-10.8) 11/11/18 19:54 RBC 4.76 Mil/cmm (3.80-5.20) 11/11/18 19:54 Hgb 13.8 gm/dL (12-16) 11/11/18 19:54 Hct 41.5 % (41.0-60) 11/11/18 19:54 MCV 87.2 fl (81-100) 11/11/18 19:54 MCH 29.0 pg (27.0-31.0) 11/11/18 19:54 MCHC Differential 33.3 pg (28.0-36.0) 11/11/18 19:54 RDW 17.2 % (11.5-20.0) 11/11/18 19:54 Plt Count 483 Th/cmm (150-400) H 11/11/18 19:54 MPV 6.9 fl 11/11/18 19:54 Neutrophils % 54.3 % (40.0-80.0) 11/11/18 19:54 Lymphocytes % 27.4 % (20.0-50.0) 11/11/18 19:54 Monocytes % 11.3 % (2.0-10.0) H 11/11/18 19:54 Eosinophils % 5.9 % (0.0-5.0) H 11/11/18 19:54 Basophils % 1.1 % (0.0-2.0) 11/11/18 19:54 Sodium 141 mEq/L (136-145) 11/11/18 19:54 Potassium 4.1 mEq/L (3.5-5.1) 11/11/18 19:54 Chloride 108 mEq/L (98-107) H 11/11/18 19:54 Carbon Dioxide 24.5 mEq/L (21.0-31.0) 11/11/18 19:54 Anion Gap 12.6 (7.0-16.0) 11/11/18 19:54 BUN 33 mg/dL (7-25) H 11/11/18 19:54 Creatinine 0.7 mg/dL (0.6-1.2) 11/11/18 19:54 Est GFR ( Amer) TNP 11/11/18 19:54 Est GFR (Non-Af Amer) TNP 11/11/18 19:54 BUN/Creatinine Ratio 47.1 11/11/18 19:54 Glucose 101 mg/dL (70-105) 11/11/18 19:54 POC Glucose 85 MG/DL (70 - 105) 11/14/18 06:05 Calcium 9.8 mg/dL (8.6-10.3) 11/11/18 19:54 Total Bilirubin 0.2 mg/dL (0.3-1.0) L 11/11/18 19:54 AST 12 U/L (13-39) L 11/11/18 19:54 ALT 19 U/L (7-52) 11/11/18 19:54 Alkaline Phosphatase 89 U/L (34-104) 11/11/18 19:54 Total Protein 6.9 gm/dL (6.0-8.3) 11/11/18 19:54 Albumin 4.2 gm/dL (3.7-5.3) 11/11/18 19:54 Globulin 2.7 gm/dL 11/11/18 19:54 Albumin/Globulin Ratio 1.6 (1.0-1.8) 11/11/18 19:54 Triglycerides 123 mg/dL (<150) 11/11/18 19:54 Cholesterol 164 mg/dL (<200) 11/11/18 19:54 LDL Cholesterol Direct 108 mg/dL (75-193) 11/11/18 19:54 HDL Cholesterol 50 mg/dL (23-92) 11/11/18 19:54 Urine Source CLEAN C 11/11/18 19:30 Urine Color YELLOW 11/11/18 19:30 Urine Clarity CLEAR (CLEAR) 11/11/18 19:30 Urine pH 6.0 (4.6 - 8.0) 11/11/18 19:30 Ur Specific [place] 1.025 (1.005-1.030) 11/11/18 19:30 Urine Protein NEGATIVE mg/dL (NEGATIVE) 11/11/18 19:30 Urine Glucose (UA) NEGATIVE mg/dL (NEGATIVE) 11/11/18 19:30 Urine Ketones NEGATIVE mg/dL (NEGATIVE) 11/11/18 19:30 Urine Blood NEGATIVE (NEGATIVE) 11/11/18 19:30 Urine Nitrate NEGATIVE (NEGATIVE) 11/11/18 19:30 Urine Bilirubin NEGATIVE (NEGATIVE) 11/11/18 19:30 Urine Urobilinogen 0.2 E.U./dL (0.2 - 1.0) 11/11/18 19:30 Ur Leukocyte Esterase NEGATIVE (NEGATIVE) 11/11/18 19:30 Urine RBC NONE SEEN /hpf (0-5) 11/11/18 19:30 Urine WBC 0-2 /hpf (0-5) 11/11/18 19:30 Ur Epithelial Cells OCCASIONAL /lpf (FEW) 11/11/18 19:30 Urine Bacteria FEW /hpf (NONE SEEN) 11/11/18 19:30 - Physical Exam Vitals and I&O: Vital Signs Temp 98.0 F 11/18/18 06:23 Pulse 65 11/18/18 06:23 Resp 18 11/18/18 06:23 BP 150/85 11/18/18 06:23 Pulse Ox 95 11/18/18 06:23 Intake & Output 11/17/18 11/18/18 11/18/18 18:59 06:59 18:59 Intake Total 1600 240 Balance 1600 240 Intake: Oral 1600 240 Other: # Voids 4 2 # Bowel Movements 0 Active Medications: Current Medications Acetaminophen (Tylenol) 650 mg PO Q4HR PRN PRN Reason: TEMP>101.F AND MILD PAIN Stop: 01/10/19 22:32 Aspirin (Ecotrin) 81 mg PO DAILY [facility] Stop: 01/11/19 08:59 Last Admin: 11/18/18 09:54 Dose: 81 mg Bisacodyl (Dulcolax 10 Mg Supp) 10 mg RC DAILY PRN PRN Reason: Constipation Stop: 01/10/19 22:32 Cholecalciferol (Vitamin D3) 1,000 iu PO DAILY [facility] Stop: 01/11/19 08:59 Last Admin: 11/18/18 09:54 Dose: 1,000 iu Docusate Sodium (Colace) 100 mg PO DAILY [facility] Stop: 01/11/19 08:59 Last Admin: 11/18/18 09:54 Dose: 100 mg Escitalopram Oxalate (Lexapro) 5 mg PO DAILY [facility]; Protocol Stop: 01/11/19 08:59 Last Admin: 11/18/18 09:54 Dose: 5 mg Lorazepam (Ativan) 0.5 mg PO Q4H PRN; Protocol PRN Reason: Anxiety Stop: 01/10/19 22:27 Last Admin: 11/13/18 21:29 Dose: 0.5 mg Magnesium Hydroxide (Milk Of Magnesia) 30 ml PO HS PRN PRN Reason: Constipation Stop: 01/10/19 22:32 Memantine (Namenda) 10 mg PO BID [facility] Stop: 01/11/19 08:59 Last Admin: 11/18/18 09:54 Dose: 10 mg Sodium Phosphate (Fleet Enema) 135 ml RC Q48HR PRN PRN Reason: Constipation Stop: 01/10/19 22:32 Zolpidem Tartrate (Ambien) 5 mg PO HS PRN PRN Reason: Insomnia Stop: 01/10/19 22:27 Last Admin: 11/17/18 20:08 Dose: 5 mg General: alert, NAD HEENT: PERRLA, EOMI Neck: Supple Lungs: CTAB Cardiovascular: RRR, Normal S1, Normal S2 Abdomen: soft, non-tender Extremities: clear Neurological: alert (pt. depressed), other (patient is non-communicative and very depressed.) Internal Medicine Assmt/Plan - Assessment Assessment: psychosis dementia chronic hepatitis asthma copd muscle weakness - Plan Plan: as per psych will monitor pt closely continue behavioral therapy Nutritional Asmnt/Malnutr-PDOC - Dietary Evaluation Malnutrition Findings (Please click <Entered> for more info): Nutritional Asmnt/Malnutrition Start: 11/16/18 09: 56 Text: Status: Complete Freq: Protocol: Document 11/16/18 09:56 NATALIE (Rec: 11/16/18 10:03 NATALIE CASIANO- [email or web address]) Nutritional Asmnt/Malnutrition Patient General Information Nutritional Screening Low Risk Diagnosis Psychosis Pertinent Medical Hx/Surgical Hx dementia, chronic hepatitis, asthma, COPD, muscle weakness Subjective Information Patient in bed at time of visit. Tolerating current diet order with adequate intake. Current Diet Order/ Nutrition Support Regular Patient / S.O Not Indicated Pertinent Medications dulcolax, vitamin D3, colace, MOM, Fleet enema Pertinent Labs (11/11) BUN 33 Nutritional Hx/Data Height 1.6 m Height (Calculated Centimeters) 160.0 Current Weight (lbs) 61.235 kg Weight (Calculated Kilograms) 61.2 Weight (Calculated Grams) 41049.0 [place] Body Weight 115 % [place] Body Weight 117 Body Mass Index (BMI) 23.9 Recent Weight Change No Weight Status Approriate GI Symptoms GI Symptoms None Last BM 11/15 x 1 Difficult in: None Food Allergies No Cultural/Ethnic/Yarsani Belief none indicated Usual diet at home unknown Skin Integrity/Comment: [place] 18, intact Current %PO Good (75-100%) Estimated Nutritional Goals BEE in Kcals: Using Current wt Calories/Kcals/Kg 25-30 kcal/kg Kcals Calculated 0084-0332 kcal/day Protein: Using Current wt Protein g/k.8-1 gm/kg Protein Calculated 50-60gm/day Fluid: ml 8253-8687 ml/day Nutritional Problem 1. Problem Problem No nutrition diagnosis at this time Intervention/Recommendation Comments Continue regular diet as tolerated by patient Expected Outcomes/Goals Expected Outcomes/Goals Oral intake >75% of meals, weight stable, nutrition related labs WNL F/U LR 2/2
--- NOTE | 2018-11-19 01:05 | Progress Notes ---
DATE: 11/18/2018 SUBJECTIVE: Case was discussed with staff of the patient, reviewed records. Covering for Dr. Bañuelos. This 73-year-old female who was admitted on 11/11/2018, because of agitation, refusing medication, came from [facility] because the patient has been increasingly agitated, depressed, has not been able to follow staff direction, angry, irritable with a history of dementia and psychosis. The patient continues to be unpredictable, impulsive, needing redirection. Continues to have poor insight, confused, unable to state a safe plan for self-care. Basically a poor historian. She has been compliant with the medication with no side effects, no sedation, no nausea, no extrapyramidal symptoms. She is on Lexapro 5 mg daily, Namenda 10 mg twice a day and will continue with group therapy, milieu therapy, adjust medication as needed. [facility]# [id number]
[2018-11-19] MEDS: Escitalopram Oxalate 5 mg Tab PO SCH (10:00)
--- NOTE | 2018-11-19 13:48 | Internal Medicine Prog Note ---
Internal Medicine Subjective - Subjective Service Date: 11/19/18 Patient is:: awake, non-interactive, agitated, confused, other (insolated, withdrawn no signs of pain ) Per staff patient has:: agitated, confused Internal Medicine Objective - Results Result Diagrams: 11/11/18 19:54 11/11/18 19:54 Recent Labs: Laboratory Last Values WBC 6.7 Th/cmm (4.8-10.8) 11/11/18 19:54 RBC 4.76 Mil/cmm (3.80-5.20) 11/11/18 19:54 Hgb 13.8 gm/dL (12-16) 11/11/18 19:54 Hct 41.5 % (41.0-60) 11/11/18 19:54 MCV 87.2 fl (81-100) 11/11/18 19:54 MCH 29.0 pg (27.0-31.0) 11/11/18 19:54 MCHC Differential 33.3 pg (28.0-36.0) 11/11/18 19:54 RDW 17.2 % (11.5-20.0) 11/11/18 19:54 Plt Count 483 Th/cmm (150-400) H 11/11/18 19:54 MPV 6.9 fl 11/11/18 19:54 Neutrophils % 54.3 % (40.0-80.0) 11/11/18 19:54 Lymphocytes % 27.4 % (20.0-50.0) 11/11/18 19:54 Monocytes % 11.3 % (2.0-10.0) H 11/11/18 19:54 Eosinophils % 5.9 % (0.0-5.0) H 11/11/18 19:54 Basophils % 1.1 % (0.0-2.0) 11/11/18 19:54 Sodium 141 mEq/L (136-145) 11/11/18 19:54 Potassium 4.1 mEq/L (3.5-5.1) 11/11/18 19:54 Chloride 108 mEq/L (98-107) H 11/11/18 19:54 Carbon Dioxide 24.5 mEq/L (21.0-31.0) 11/11/18 19:54 Anion Gap 12.6 (7.0-16.0) 11/11/18 19:54 BUN 33 mg/dL (7-25) H 11/11/18 19:54 Creatinine 0.7 mg/dL (0.6-1.2) 11/11/18 19:54 Est GFR ( Amer) TNP 11/11/18 19:54 Est GFR (Non-Af Amer) TNP 11/11/18 19:54 BUN/Creatinine Ratio 47.1 11/11/18 19:54 Glucose 101 mg/dL (70-105) 11/11/18 19:54 POC Glucose 85 MG/DL (70 - 105) 11/14/18 06:05 Calcium 9.8 mg/dL (8.6-10.3) 11/11/18 19:54 Total Bilirubin 0.2 mg/dL (0.3-1.0) L 11/11/18 19:54 AST 12 U/L (13-39) L 11/11/18 19:54 ALT 19 U/L (7-52) 11/11/18 19:54 Alkaline Phosphatase 89 U/L (34-104) 11/11/18 19:54 Total Protein 6.9 gm/dL (6.0-8.3) 11/11/18 19:54 Albumin 4.2 gm/dL (3.7-5.3) 11/11/18 19:54 Globulin 2.7 gm/dL 11/11/18 19:54 Albumin/Globulin Ratio 1.6 (1.0-1.8) 11/11/18 19:54 Triglycerides 123 mg/dL (<150) 11/11/18 19:54 Cholesterol 164 mg/dL (<200) 11/11/18 19:54 LDL Cholesterol Direct 108 mg/dL (75-193) 11/11/18 19:54 HDL Cholesterol 50 mg/dL (23-92) 11/11/18 19:54 Urine Source CLEAN C 11/11/18 19:30 Urine Color YELLOW 11/11/18 19:30 Urine Clarity CLEAR (CLEAR) 11/11/18 19:30 Urine pH 6.0 (4.6 - 8.0) 11/11/18 19:30 Ur Specific [place] 1.025 (1.005-1.030) 11/11/18 19:30 Urine Protein NEGATIVE mg/dL (NEGATIVE) 11/11/18 19:30 Urine Glucose (UA) NEGATIVE mg/dL (NEGATIVE) 11/11/18 19:30 Urine Ketones NEGATIVE mg/dL (NEGATIVE) 11/11/18 19:30 Urine Blood NEGATIVE (NEGATIVE) 11/11/18 19:30 Urine Nitrate NEGATIVE (NEGATIVE) 11/11/18 19:30 Urine Bilirubin NEGATIVE (NEGATIVE) 11/11/18 19:30 Urine Urobilinogen 0.2 E.U./dL (0.2 - 1.0) 11/11/18 19:30 Ur Leukocyte Esterase NEGATIVE (NEGATIVE) 11/11/18 19:30 Urine RBC NONE SEEN /hpf (0-5) 11/11/18 19:30 Urine WBC 0-2 /hpf (0-5) 11/11/18 19:30 Ur Epithelial Cells OCCASIONAL /lpf (FEW) 11/11/18 19:30 Urine Bacteria FEW /hpf (NONE SEEN) 11/11/18 19:30 - Physical Exam Vitals and I&O: Vital Signs Temp 97.6 F 11/19/18 06:40 Pulse 67 11/19/18 06:40 Resp 18 11/19/18 06:40 BP 146/79 11/19/18 06:40 Pulse Ox 94 11/19/18 06:40 Intake & Output 11/18/18 11/19/18 11/19/18 18:59 06:59 18:59 Intake Total 1200 240 Balance 1200 240 Intake: Oral 1200 240 Other: # Voids 3 2 # Bowel Movements 1 Active Medications: Current Medications Acetaminophen (Tylenol) 650 mg PO Q4HR PRN PRN Reason: TEMP>101.F AND MILD PAIN Stop: 01/10/19 22:32 Aspirin (Ecotrin) 81 mg PO DAILY [facility] Stop: 01/11/19 08:59 Last Admin: 11/19/18 10:00 Dose: 81 mg Bisacodyl (Dulcolax 10 Mg Supp) 10 mg RC DAILY PRN PRN Reason: Constipation Stop: 01/10/19 22:32 Cholecalciferol (Vitamin D3) 1,000 iu PO DAILY [facility] Stop: 01/11/19 08:59 Last Admin: 11/19/18 10:00 Dose: 1,000 iu Docusate Sodium (Colace) 100 mg PO DAILY [facility] Stop: 01/11/19 08:59 Last Admin: 11/19/18 10:00 Dose: 100 mg Escitalopram Oxalate (Lexapro) 10 mg PO DAILY [facility]; Protocol Stop: 01/19/19 08:59 Lorazepam (Ativan) 0.5 mg PO Q4H PRN; Protocol PRN Reason: Anxiety Stop: 01/10/19 22:27 Last Admin: 11/13/18 21:29 Dose: 0.5 mg Magnesium Hydroxide (Milk Of Magnesia) 30 ml PO HS PRN PRN Reason: Constipation Stop: 01/10/19 22:32 Memantine (Namenda) 10 mg PO BID [facility] Stop: 01/11/19 08:59 Last Admin: 11/19/18 10:00 Dose: 10 mg Sodium Phosphate (Fleet Enema) 135 ml RC Q48HR PRN PRN Reason: Constipation Stop: 01/10/19 22:32 Zolpidem Tartrate (Ambien) 5 mg PO HS PRN PRN Reason: Insomnia Stop: 01/10/19 22:27 Last Admin: 11/18/18 21:14 Dose: 5 mg General: alert, NAD HEENT: PERRLA, EOMI Neck: Supple Lungs: CTAB Cardiovascular: RRR, Normal S1, Normal S2 Abdomen: soft, non-tender Extremities: clear Neurological: alert (pt. depressed), other (patient is non-communicative and very depressed.) Internal Medicine Assmt/Plan - Assessment Assessment: DEMENTIA CHRONIC HEPATITIS ASTHMA COPD MUSCLE WEAKNESS - Plan Plan: FALL PRECAUTIONS CONTINUE CURRENT TX Nutritional Asmnt/Malnutr-PDOC - Dietary Evaluation Malnutrition Findings (Please click <Entered> for more info): Nutritional Asmnt/Malnutrition Start: 11/16/18 09: 56 Text: Status: Complete Freq: Protocol: Document 11/16/18 09:56 NATALIE (Rec: 11/16/18 10:03 NATALIE CASIANO- [email or web address]) Nutritional Asmnt/Malnutrition Patient General Information Nutritional Screening Low Risk Diagnosis Psychosis Pertinent Medical Hx/Surgical Hx dementia, chronic hepatitis, asthma, COPD, muscle weakness Subjective Information Patient in bed at time of visit. Tolerating current diet order with adequate intake. Current Diet Order/ Nutrition Support Regular Patient / S.O Not Indicated Pertinent Medications dulcolax, vitamin D3, colace, MOM, Fleet enema Pertinent Labs (11/11) BUN 33 Nutritional Hx/Data Height 5 ft 3 in Height (Calculated Centimeters) 160.0 Current Weight (lbs) 135 lb Weight (Calculated Kilograms) 61.2 Weight (Calculated Grams) 51076.0 Asher Body Weight 115 % Asher Body Weight 117 Body Mass Index (BMI) 23.9 Recent Weight Change No Weight Status Approriate GI Symptoms GI Symptoms None Last BM 11/15 x 1 Difficult in: None Food Allergies No Cultural/Ethnic/Holiness Belief none indicated Usual diet at home unknown Skin Integrity/Comment: Jarvis 18, intact Current %PO Good (75-100%) Estimated Nutritional Goals BEE in Kcals: Using Current wt Calories/Kcals/Kg 25-30 kcal/kg Kcals Calculated 4208-0450 kcal/day Protein: Using Current wt Protein g/k.8-1 gm/kg Protein Calculated 50-60gm/day Fluid: ml 6508-4084 ml/day Nutritional Problem 1. Problem Problem No nutrition diagnosis at this time Intervention/Recommendation Comments Continue regular diet as tolerated by patient Expected Outcomes/Goals Expected Outcomes/Goals Oral intake >75% of meals, weight stable, nutrition related labs WNL F/U LR 2/2
--- NOTE | 2018-11-19 20:57 | Progress Notes ---
DATE: 11/19/2018 Case was discussed with staff of the patient, reviewed records. The patient continues to have episodes of agitation, irritability. Unable to follow staff direction, getting angered easily. She is demented, confused, unpredictable, impulsive, needing redirection, unable to carry on a conversation or make safe plan for self-care. She has been compliant with the medication with no side effects, no sedation, no nausea, no extrapyramidal symptoms. I will be increasing her Lexapro to 10 mg daily to help improve her depressive symptoms and anxiety and so far no side effects with the medication, no sedation, and no nausea. We will continue the patient in group therapy, milieu therapy, and adjust the medications as needed. [facility]# [id number]
[2018-11-20] MEDS ORDERED: Escitalopram Oxalate 5 mg Tab PO SCH (09:00)
--- NOTE | 2018-11-22 22:50 | Discharge Summary ---
DATE OF DISCHARGE: 11/20/2018 PATIENT'S AGE: 73. SEX: Female. PHYSICIAN: Chandrakant Bañuelos MD, MPH FINAL DIAGNOSIS: PRIMARY DIAGNOSIS: Unspecified psychosis. REASON FOR HOSPITALIZATION: The patient was admitted to the hospital from [facility]. The patient was increasingly agitated and depressed, and the patient also was not able to follow staff directions and the patient was admitted to the hospital. HOSPITAL COURSE: The patient continued to be agitated and in irritable mood. The patient also was restless. She also needed lots of redirections. The patient was started on Lexapro because of increased depression. The patient started on Lexapro and also was given Namenda. Lexapro dose adjusted to 15 mg every day. The patient's affect was brighter and the patient was calm and less agitated and less irritable. Also, she was less depressed and not suicidal. The patient is to return to [facility]. Physical exam of the patient was monitored closely and the patient had no major medical issues while in the hospital. AFTER DISCHARGE PLANS: The patient returned to [facility] with plans to follow up there. EXPECTED OUTCOME AFTER DISCHARGE: Fair if the patient continued with her outpatient treatment and follow up with discharge plans. [facility]# [id number]
== END 2018-11-20 18:00 | DRG 885 ==
LOC: ER 18:58 → UNDOADMIN 21:57 → GERO2 21:57 → GERO 11-12 21:03
PROVIDERS: ADMIT Psychiatry & Neurology Psychiatry; ATTEND Psychiatry & Neurology Psychiatry
DX: F29 Unspecified psychosis not due to a substance or known physiological condition (principal); F03.90 Unspecified dementia, unspecified severity, without behavioral disturbance, psychotic disturbance, mood disturbance, and anxiety; K73.9 Chronic hepatitis, unspecified; J44.9 Chronic obstructive pulmonary disease, unspecified; I10 Essential (primary) hypertension; M62.81 Muscle weakness (generalized); F41.9 Anxiety disorder, unspecified; M19.90 Unspecified osteoarthritis, unspecified site; E55.9 Vitamin D deficiency, unspecified; Z79.82 Long term (current) use of aspirin
CPT/HCPCS: 36415-UA; 80053-TC; 80061-TC; 81001-TC; 82948-90; 83036-90; 85025-TC; 90899; G0410